=== PATIENT | male | born 1990 | race African-American/Black ===

== ENCOUNTER 2020-11-15 20:22 | Inpatient (IN) | payer MEDICAID ==
[~2020-11-15] VITALS: Ht 182.9 cm; Wt 102.5 kg
[~2020-11-15 20:22] MED LIST: CITA10TA99 PO; GABA-1181 PO; LURA40TA2 PO; TRAZ-252 PO
[2020-11-15] MEDS ORDERED: HALOPERIDOL 5 MG TABLET PO PRN (23:45)
[2020-11-16] MEDS ORDERED: INFLUENZA VIRUS VACCINE QVS 2020-21 (6MO+)/PF 60 MCG/0.5 ML SYRINGE IM ONE (00:15)
[2020-11-16] MEDS ORDERED: PNEUMOCOCCAL VACCINE POLYVALENT 0.5 ML VIAL [PPSV23] IM ONE (00:15)
[2020-11-16 00:45] VITALS: BP 141/95
[2020-11-16] MEDS: LORazepam 2 MG TABLET PO PRN ×3 (00:47→17:15)
[2020-11-16] MEDS ORDERED: CloNIDine HCL 0.1 MG TABLET PO PRN (07:15)
[2020-11-16] MEDS ORDERED: PETROLATUM,WHITE 28 GM JELLY TP PRN (07:15)
[2020-11-16] MEDS ORDERED: IBUPROFEN 400 MG TABLET PO PRN (07:15)
[2020-11-16] MEDS ORDERED: MAG HYDROX/AL HYDROX/SIMETH ES 30 ML SUSPENSION UDCUP PO PRN (07:15)
[2020-11-16] MEDS ORDERED: MAGNESIUM HYDROXIDE SUSPENSION 30 ML UDCUP PO PRN (07:15)
[2020-11-16] MEDS ORDERED: ACETAMINOPHEN 325 MG TABLET PO PRN (07:15)
[2020-11-16] MEDS ORDERED: GuaiFENesin/D-METHORPHAN [SUGAR-FREE] 200-20MG/10 ML SYRUP UDCUP PO PRN (07:15)
[2020-11-16] MEDS ORDERED: NICOTINE 14 MG/24 HOUR PATCH TD PRN (07:15)
[2020-11-16] MEDS ORDERED: ALBUTEROL SULFATE HFA 90 MCG/PUFF 8 GM INHALER IH PRN (07:15)
[2020-11-16] MEDS ORDERED: LOPERAMIDE HCL 2 MG CAPSULE PO PRN (07:15)
[2020-11-16] MEDS ORDERED: ONDANSETRON HCL 4 MG TABLET PO PRN (07:15)
[2020-11-16] MEDS ORDERED: DOCUSATE SODIUM 100 MG CAPSULE PO PRN (07:15)
[2020-11-16 08:18] LABS: BASOPHILS % (AUTO) 0.6 % (0.0-2.0); EOSINOPHILS % (AUTO) 3.2 % (1.0-6.0); HEMATOCRIT 41.6 % (41-53); HEMOGLOBIN 13.5 g/dL (13.5-17.5); LYMPHOCYTES # (AUTO) 1.6 K/uL (1.0-4.8); MEAN CORPUSCULAR HEMOGLOBIN 27.3 pg (26.0-34.0); MEAN CORPUSCULAR HGB CONC 32.6 G/dL (31.0-37.0); MEAN CORPUSCULAR VOLUME 84 fL (80-100); MONOCYTES # (AUTO) 0.6 K/uL (0.1-1.0); MONOCYTES % (AUTO) 8.9 % (2.0-9.0); NEUTROPHILS # (AUTO) 4.1 K/uL (1.8-7.7); NEUTROPHILS % (AUTO) 62.3 % (40.0-70.0); PLATELET COUNT (AUTO) 291 K/uL (150-450); RED BLOOD CELL COUNT(AUTO) 4.97 MIL/uL (4.50-5.90); RED CELL DISTRIBUTION WIDTH 13.6 % (11.5-14.5)
[2020-11-16 08:32] LABS: HEMOGLOBIN A1C 5.5 % (3.8-5.6)
[2020-11-16 08:49] VITALS: BP 122/71
[2020-11-16 08:49] LABS: ALANINE AMINOTRANSFERASE 37 U/L (12-78); ALBUMIN 3.2 g/dL (3.4-5.0); ALKALINE PHOSPHATASE 97 U/L (46-116); ANION GAP 7 mmol/L (8-16); ASPARTATE AMINOTRANSFERASE 14 U/L (15-37); BILIRUBIN,TOTAL 0.3 mg/dL (0.1-1.0); CALCIUM, TOTAL 9.1 mg/dL (8.8-10.5); CARBON DIOXIDE 28 mmol/L (22-29); CHLORIDE 105 mmol/L (98-107); CHOL/HDL RATIO 4.1 (4.2-7.3); CHOLESTEROL 170 mg/dL (131-200); CREATININE 0.92 mg/dL (0.60-1.30); FREE T4 (FREE THYROXINE) 0.97 ng/dL (0.76-1.46); GLOMERULAR FILTR. RATE CALC > 60 mL/min (>60); GLUCOSE,RANDOM 80 mg/dL (70-110); HDL CHOLESTEROL 41 mg/dL (40-60); LDL CHOL (CALC.) 106 mg/dL (0-130); POTASSIUM 4.2 mmol/L (3.5-5.1); SODIUM SERUM 140 mmol/L (136-145); THYROID STIMULATING HORMONE 1.72 uIU/mL (0.36-3.74); TOTAL PROTEIN, SERUM 6.6 g/dL (6.4-8.2); TRIGLYCERIDES 115 mg/dL (15-150); UREA NITROGEN, BLOOD 12 mg/dL (7-18)
[2020-11-16] MEDS: CITALOPRAM HYDROBROMIDE 20 MG TABLET PO SCH (12:12)
[2020-11-16 16:33] VITALS: BP 119/82
[2020-11-16] MEDS: OLANZapine 5 MG TABLET PO SCH (17:03)
[2020-11-16] MEDS: GABAPENTIN 300 MG CAPSULE PO SCH (17:03)
[2020-11-16] MEDS ORDERED: TraZODone HCL 50 MG TABLET PO SCH (21:00)
[2020-11-17 00:42] VITALS: BP 116/78
[2020-11-17] MEDS: OLANZapine 5 MG TABLET PO SCH ×2 (08:03→16:03)
[2020-11-17] MEDS: GABAPENTIN 300 MG CAPSULE PO SCH ×2 (08:03→16:03)
[2020-11-17] MEDS: LORazepam 2 MG TABLET PO PRN ×3 (08:04→20:32)
[2020-11-17] MEDS: CITALOPRAM HYDROBROMIDE 20 MG TABLET PO SCH (08:04)
[2020-11-17 08:48] VITALS: BP 113/77
[2020-11-17 16:18] VITALS: BP 116/78
[2020-11-17] MEDS: TraZODone HCL 100 MG TABLET PO SCH (20:17)
[2020-11-18 01:06] VITALS: BP 120/77
[2020-11-18] MEDS: LORazepam 2 MG TABLET PO PRN ×3 (07:18→17:06)
[2020-11-18 08:40] VITALS: BP 140/79
[2020-11-18] MEDS: OLANZapine 5 MG TABLET PO SCH ×2 (08:42→16:28)
[2020-11-18] MEDS: CITALOPRAM HYDROBROMIDE 20 MG TABLET PO SCH (08:42)
[2020-11-18] MEDS: GABAPENTIN 300 MG CAPSULE PO SCH ×2 (08:42→16:28)
[2020-11-18 16:25] VITALS: BP 104/60
[2020-11-18] MEDS: TraZODone HCL 100 MG TABLET PO SCH (20:05)
[2020-11-19 00:48] VITALS: BP 122/73
[2020-11-19 08:31] VITALS: BP 134/92
[2020-11-19] MEDS: GABAPENTIN 300 MG CAPSULE PO SCH ×2 (08:48→17:05)
[2020-11-19] MEDS: OLANZapine 5 MG TABLET PO SCH ×2 (08:48→17:05)
[2020-11-19] MEDS: CITALOPRAM HYDROBROMIDE 20 MG TABLET PO SCH (08:48)
[2020-11-19] MEDS: LORazepam 2 MG TABLET PO PRN ×3 (08:48→17:33)
[2020-11-19 16:40] VITALS: BP 105/62
[2020-11-19] MEDS: TraZODone HCL 100 MG TABLET PO SCH (20:19)
[2020-11-19] MEDS: MUPIROCIN CALCIUM 2% 22 GM OINTMENT TP SCH (21:01)
[2020-11-20 00:37] VITALS: BP 110/61
[2020-11-20 07:06] VITALS: BP 123/82
[2020-11-20] MEDS: LORazepam 2 MG TABLET PO PRN ×4 (07:10→20:22)
[2020-11-20 08:44] VITALS: BP 123/82
[2020-11-20] MEDS: CITALOPRAM HYDROBROMIDE 20 MG TABLET PO SCH (09:00)
[2020-11-20] MEDS: GABAPENTIN 300 MG CAPSULE PO SCH ×2 (09:00→16:06)
[2020-11-20] MEDS: OLANZapine 5 MG TABLET PO SCH ×2 (09:00→16:06)
[2020-11-20 10:18] LABS: COVID AG,FIA SOURCE NASOPHARYNGEAL
[2020-11-20] MEDS: MUPIROCIN CALCIUM 2% 22 GM OINTMENT TP SCH ×2 (10:29→20:20)
[2020-11-20 16:39] VITALS: BP 139/78
[2020-11-20] MEDS: TraZODone HCL 100 MG TABLET PO SCH (20:20)
[2020-11-21] MEDS: LORazepam 2 MG TABLET PO PRN ×4 (07:04→20:32)
[2020-11-21] MEDS: CITALOPRAM HYDROBROMIDE 20 MG TABLET PO SCH (08:55)
[2020-11-21] MEDS: GABAPENTIN 300 MG CAPSULE PO SCH ×2 (08:55→16:31)
[2020-11-21] MEDS: OLANZapine 5 MG TABLET PO SCH ×2 (08:55→16:31)
[2020-11-21] MEDS: MUPIROCIN CALCIUM 2% 22 GM OINTMENT TP SCH ×2 (08:59→16:31)
[2020-11-21 09:06] VITALS: BP 136/84
[2020-11-21 16:28] VITALS: BP 133/73
[2020-11-21] MEDS: TraZODone HCL 100 MG TABLET PO SCH (20:32)
[2020-11-22 04:44] VITALS: BP 126/72
[2020-11-22] MEDS: LORazepam 2 MG TABLET PO PRN ×4 (07:12→20:35)
[2020-11-22 08:27] VITALS: BP 135/90
[2020-11-22] MEDS: OLANZapine 5 MG TABLET PO SCH ×2 (08:34→16:33)
[2020-11-22] MEDS: CITALOPRAM HYDROBROMIDE 20 MG TABLET PO SCH (08:34)
[2020-11-22] MEDS: MUPIROCIN CALCIUM 2% 22 GM OINTMENT TP SCH ×2 (08:34→16:34)
[2020-11-22] MEDS: GABAPENTIN 300 MG CAPSULE PO SCH ×2 (08:34→16:33)
[2020-11-22 16:20] VITALS: BP 100/60
[2020-11-22] MEDS: TraZODone HCL 100 MG TABLET PO SCH (20:35)
[2020-11-23 01:01] VITALS: BP 128/77
[2020-11-23] MEDS: MUPIROCIN CALCIUM 2% 22 GM OINTMENT TP SCH ×2 (08:05→16:33)
[2020-11-23] MEDS: GABAPENTIN 300 MG CAPSULE PO SCH ×2 (08:05→16:33)
[2020-11-23] MEDS: OLANZapine 5 MG TABLET PO SCH ×2 (08:05→16:33)
[2020-11-23] MEDS: LORazepam 2 MG TABLET PO PRN ×4 (08:05→20:37)
[2020-11-23] MEDS: CITALOPRAM HYDROBROMIDE 20 MG TABLET PO SCH (08:05)
[2020-11-23 08:47] VITALS: BP 132/80
[2020-11-23 16:19] VITALS: BP 133/85
[2020-11-23] MEDS: TraZODone HCL 100 MG TABLET PO SCH (20:37)
[2020-11-24 01:42] VITALS: BP 130/76
[2020-11-24 09:05] VITALS: BP 130/82
[2020-11-24] MEDS: GABAPENTIN 300 MG CAPSULE PO SCH ×2 (09:41→16:03)
[2020-11-24] MEDS: MUPIROCIN CALCIUM 2% 22 GM OINTMENT TP SCH ×2 (09:41→16:03)
[2020-11-24] MEDS: OLANZapine 5 MG TABLET PO SCH ×2 (09:41→16:03)
[2020-11-24] MEDS: LORazepam 2 MG TABLET PO PRN ×3 (09:41→20:15)
[2020-11-24] MEDS: CITALOPRAM HYDROBROMIDE 20 MG TABLET PO SCH (09:41)
[2020-11-24 16:22] VITALS: BP 113/71
[2020-11-24] MEDS: TraZODone HCL 100 MG TABLET PO SCH (20:15)
[2020-11-25 06:43] VITALS: BP 101/58
[2020-11-25] MEDS: LORazepam 2 MG TABLET PO PRN ×3 (07:08→16:21)
[2020-11-25] MEDS: OLANZapine 5 MG TABLET PO SCH ×2 (08:13→16:21)
[2020-11-25] MEDS: CITALOPRAM HYDROBROMIDE 20 MG TABLET PO SCH (08:13)
[2020-11-25] MEDS: GABAPENTIN 300 MG CAPSULE PO SCH ×2 (08:13→16:21)
[2020-11-25] MEDS: MUPIROCIN CALCIUM 2% 22 GM OINTMENT TP SCH ×2 (08:13→17:48)
[2020-11-25 08:55] VITALS: BP 120/73
[2020-11-25 16:46] VITALS: BP 123/79
[2020-11-25] MEDS: TraZODone HCL 100 MG TABLET PO SCH (20:18)
[2020-11-26] MEDS: LORazepam 2 MG TABLET PO PRN ×3 (06:25→16:06)
[2020-11-26 06:27] VITALS: BP 158/94
[2020-11-26 08:32] VITALS: BP 135/85
[2020-11-26] MEDS: CITALOPRAM HYDROBROMIDE 20 MG TABLET PO SCH (09:01)
[2020-11-26] MEDS: GABAPENTIN 300 MG CAPSULE PO SCH ×2 (09:01→16:06)
[2020-11-26] MEDS: OLANZapine 5 MG TABLET PO SCH ×2 (09:01→16:06)
[2020-11-26 16:25] VITALS: BP 108/78
[2020-11-26] MEDS: TraZODone HCL 100 MG TABLET PO SCH (20:18)
[2020-11-27 06:33] VITALS: BP 137/88
[2020-11-27] MEDS: LORazepam 2 MG TABLET PO PRN ×2 (06:33→10:46)
[2020-11-27 08:41] VITALS: BP 116/68
[2020-11-27] MEDS: GABAPENTIN 300 MG CAPSULE PO SCH ×2 (08:55→15:55)
[2020-11-27] MEDS: OLANZapine 5 MG TABLET PO SCH ×2 (08:55→15:55)
[2020-11-27] MEDS: CITALOPRAM HYDROBROMIDE 20 MG TABLET PO SCH (08:56)
[2020-11-27 10:08] LABS: COVID AG,FIA SOURCE NASOPHARYNGEAL
[2020-11-27] MEDS ORDERED: OLAN5TAB2 PO (14:00)
[2020-11-27] MEDS ORDERED: TRAZ-257 PO (14:00)
[2020-11-27] MEDS ORDERED: CITA-144 PO (14:00)
[2020-11-27 16:20] VITALS: BP 108/64
== END 2020-11-27 16:00 | disposition home or self-care (01) | DRG 750 ==
LOC: B2S 23:42
PROVIDERS: ADMIT Psychiatry & Neurology Psychiatry; ATTEND Psychiatry & Neurology Psychiatry
DX: F25.1 Schizoaffective disorder, depressive type (principal); E66.3 Overweight; I10 Essential (primary) hypertension; Z91.5 Personal history of self-harm; R45.851 Suicidal ideations; F12.90 Cannabis use, unspecified, uncomplicated; R10.13 Epigastric pain; Z20.822 Contact with and (suspected) exposure to COVID-19; Z91.013 Allergy to seafood; Z88.8 Allergy status to other drugs, medicaments and biological substances; Z68.30 Body mass index [BMI] 30.0-30.9, adult
CPT/HCPCS: 83036; 84439; 84443; 87081; 87147; 87426